=== PATIENT | male | born 1955 | race Caucasian/White ===

== ENCOUNTER 2020-02-25 18:05 | Inpatient (IN) | payer OTHER ==
[~2020-02-25] VITALS: Ht 182.9 cm; Wt 86.2 kg
[2020-02-25 18:11] VITALS: BP 124/74
[2020-02-25] MEDS ORDERED: VALSARTAN-HCTZ1 EAC4 PO (18:15)
[2020-02-25] MEDS ORDERED: LIPITOR40 MG PO (18:15)
[2020-02-25] MEDS ORDERED: ASA81BEC PO (18:15)
[2020-02-25 18:48] LABS: BASOPHILS 0.5 % (0.0-2.0); EOSINOPHILS 0.8 % (0.0-3.0); HEMOGLOBIN 13.1 gm/dL (14.0-18.0); LYMPHOCYTES 12.9 % (24.0-44.0); MCH 31.5 pg (26.0-34.0); MCHC 32.8 g/dL (28.0-37.0); MCV 96.1 fL (80.0-100.0); MONOCYTES 10.6 % (1.0-8.0); PLATELET COUNT 305 thou/uL (150-400); POLYS 75.2 % (36.0-66.0); RBC 4.16 mil/uL (4.50-6.00); RDW 13.6 % (10.5-14.5)
[2020-02-25 19:11] LABS: CALCIUM 9.5 mg/dL (8.5-10.1); CREATININE 1.4 mg/dL (0.7-1.3); POTASSIUM 3.4 mmol/L (3.5-5.1)
[2020-02-25 19:17] LABS: TOTAL PROTEIN 7.7 g/dL (6.4-8.2)
[2020-02-25 20:31] VITALS: BP 112/74
[2020-02-25 21:10] VITALS: BP 121/76
--- NOTE | 2020-02-26 02:24 | NUR ---
PT CAME TO THE UNIT FROM THE ER AT AROUND 2044. PT WITH DX OF APPENDICITIS. PT ADMISSION ASSESSMENT COMPLETED. FE[facility]RILE-SEE [facility].PT GIVEN TYLENOL WITH RELIEF OF SYMPTOM.PT FELICITA NEED FOR PAIN MEDS.ORDERS RECEIVED FROM DR CH AND INITIATED. PT IS STEADY ON FEET AND IS UP AD ÁNGELA IN ROOM.IVF INFUSING-NPO AFTER MIDNOC FOR SURGERY NEXT DAY.SCDS IN PLACE,CALL LIGHT WITHIN REACH.
[2020-02-26 03:40] VITALS: BP 108/92
[2020-02-26 06:01] LABS: HEMATOCRIT 36.1 % (42.0-52.0); HEMOGLOBIN 11.9 gm/dL (14.0-18.0); MCH 31.7 pg (26.0-34.0); MCHC 32.9 g/dL (28.0-37.0); MCV 96.4 fL (80.0-100.0); RBC 3.75 mil/uL (4.50-6.00); RDW 13.5 % (10.5-14.5)
[2020-02-26 06:11] LABS: CALCIUM 9.1 mg/dL (8.5-10.1); CREATININE 1.4 mg/dL (0.7-1.3); POTASSIUM 3.9 mmol/L (3.5-5.1)
[2020-02-26] MEDS ORDERED: HYDROCODON-ACE1 EAC7 PO (10:18)
[2020-02-26 12:24] VITALS: BP 118/82
--- NOTE | 2020-02-26 14:08 | NUR ---
assessment: CM REVIEWED CHART. PT IS S/P LAP APPENDECTOMY. PT REPORTS LIVING IN A HOUSE WITH HIS . PT REPORTS BEING FULLY INDEPENDENT WITH ADLS AND AMBULATION. PT HAS NO HX OF HH. PT REPORTS HE ANTICIPATES DISCHARGE HOME LATER TODAY AND ANTICIPATES NO NEEDS FROM CM.
[2020-02-26 15:11] VITALS: BP 126/78
--- NOTE | 2020-02-26 16:01 | NUR ---
PT ASSESSED PRIOR TO GOING DOWN FOR SURGERY. RETURNED AT 1200 ALERT AND IN NO PAIN. PT ATE SM AMT SOFT FOOD FOR LUNCH. AMBULATING SEVERAL TIMES IN THE HALLS TO HELP ALLEVIATE GAS. ABD SLIGHTLY DISTENDED. BANDAIDS DRY AND INTACT. PLAN FOR DISCHARGE AFTER AFTERNOON ZOSYN DOSE.
[2020-02-26 17:31] VITALS: BP 126/78
[2020-02-26 17:32] VITALS: BP 126/78
[2020-02-26 17:55] VITALS: BP 126/78
--- NOTE | 2020-03-02 12:07 | PATH ---
[facility] [address] [place] [address] PATHOLOGY RPT PROCEDURE Name: SAMIISSAC CARVAJAL Room #: 447-P DIS IN M.R.#: [id number] Admission: 02/25/20 Date of : 55 Discharge: 02/26/20 Report #: [id number] Path Case #: [id number] [facility] Accession Number: [id number] . 01 Material submitted: . appendix - APPENDICITIS . 01 Clinical history: . ACUTE APPENDICITIS . 01 Diagnosis: Appendix, "appendix, appendectomy": - Acute suppurative appendicitis with acute inflammation extending into the periappendiceal fat with microabscess formation. . (SHA:mmrosana; 03/01/2020) [facility] 03/01/2020 1330 Local . 01 Electronically signed: . Tex Warner MD, Pathologist NPI- [id number] . 01 Gross description: . Received in formalin labeled "Issac Angel, appendix" is an intact vermiform appendix measuring 5.4 cm in length by a diameter ranging from 0.4-1.1 cm with attached mesoappendix measuring 3.1 x 2.1 x 0.6 cm. The serosal surface is smooth, abebe-pink and proximally dilated. The surgical resection margin is inked black and the specimen is sectioned to reveal 0.3 cm lumen filled with fecal matter. There are no gross perforations identified. Health Unit Clerk of the specimen are submitted as follows: A1. Margins and cross sections A2. Appendiceal tip entirely submitted.([facility]; 02/27/2020) . GZA/GZA 02/27/2020 1338 Local . 01 Pathologist provided ICD-10: K35.80 . 01 CPT . 112744 Specimen Comment: A courtesy copy of this report has been sent to [phone] Specimen Comment: [id number] Specimen Comment: Report sent to / DR STARKS Specimen Comment: A duplicate report has been generated due to demographic updates. Performed at: [address] [place] [address] PATHOLOGY RPT PROCEDURE Name: ISSAC ANGEL Room #: 447-P DIS IN M.R.#: [id number] Admission: 02/25/20 Date of : 55 Discharge: 02/26/20 Report #: [id number] Path Case #: [id number] [place] [id number] [facility] [address], [place], [place] [id number] MD Tex Warner MD Phone: [phone]
--- NOTE | 2020-03-02 14:34 | O ---
[facility] [address] [place] [address] OPERATIVE REPORT Name: ISSAC DAVIES Room #: 447-P [facility] IN M.R.#: [id number] Admission: 02/25/20 Attend Phys: Derrick Victor MD Discharge: 02/26/20 Date of : 55 Report #: [id number] THIS REPORT FOR: cc: Jamir Martinez MD, Christopher B. MD Chu, Peter Y. MD ~ DATE OF SERVICE: 02/26/2020 PREOPERATIVE DIAGNOSES: 1. Acute appendicitis. 2. Umbilical hernia. POSTOPERATIVE DIAGNOSES: 1. Acute appendicitis. 2. Umbilical hernia. PROCEDURES PERFORMED: 1. Laparoscopic appendectomy. 2. Repair of umbilical hernia primarily. SURGEON: Derrick Victor MD ANESTHESIA: General anesthesia. COMPLICATIONS: None. ESTIMATED BLOOD LOSS: 10 mL. PROCEDURE NOTE: With the patient under general anesthesia, abdomen was prepped and draped in sterile fashion. Timeout was performed. Preoperative IV antibiotic was given about 8 o'clock. A 0.25% Marcaine was used to anesthetize the skin infraumbilically. A 3 cm incision was made infraumbilically. The skin was lifted off of the hernia defect. There was properitoneal fat through this. The fascia edges were identified superiorly also inferiorly of the hernia defect and measured about 1.5 cm. 0 Vicryl suture placed on the fascia edges for retraction. Veress needle was then placed through the peritoneum with the abdominal wall lifted with the retention sutures. After going through the hernia sac, abdominal cavity was insufflated with CO2 without difficulty. After creating pneumoperitoneum, 12 mm trocar was placed under visualization into the pneumoperitoneum, no harm to underlying tissue. A 5 mm trocar was placed about 2 inches above the umbilicus. A second 5 mm trocar was placed about an inch and a half below the umbilicus. The appendix was tucked retrocecally and laterally located. I can see the base. Right at the area of the base, there is a small exudate that was present. The right colon has some adhesion to the wall. These adhesions were taken down. This allowed the colon to be mobilized medially. [facility] [address] [place] [address] OPERATIVE REPORT Name: ISSAC DAVIES Room #: 447-P DIS IN M.R.#: [id number] Admission: 02/25/20 Attend Phys: Derrick Victor MD Discharge: 02/26/20 Date of : 55 Report #: [id number] The base of the appendix was retracted out of the retroperitoneal position and it seems to be tucked inside folds of the peritoneum. I can see the rest of the appendix and the tip was able to be delivered. The proximal two-thirds of the appendix is thickened. The tip was actually normal looking. The mesoappendix was then visualized. The mesoappendix was divided with Harmonic scalpel. The appendix was isolated. The base was identified. A 5 mm camera scope was then used through the inferior trocar. A grasper was placed to grab the appendix through the upper 5 mm trocar. The stapler was placed through the 12 mm trocar. The stapler was placed across the base and slightly into the cecum. The Endo-BRIGIDO was closed. BRIGIDO 45 with a blue staple was used. After about 10-15 seconds, the BRIGIDO was deployed. The appendix was freed without difficulty. Well-formed staple line is seen on the cecum. The appendix was placed in the specimen bag, retrieved through the 12 mm trocar/umbilical site. The appendix was retrieved without difficulty. Irrigation was performed. The tissue folded together pretty well where the appendix was located. There is no rupture, no pus. Irrigation was performed. Irrigation was aspirated out. Approximately 1 liter of irrigation was used. Trocars were removed. CO2 was evacuated as much as possible. The fascia defect for the umbilical hernia was then closed with 0 PDS [id number] x 2. The umbilicus skin was tucked down to the fascia with 5-0 PDS. Skin was then closed with 5-0 PDS in a subcuticular fashion. Steri-Strips applied. Fluffy 4 x 4 was placed in the umbilicus and Op-Site was used for dressing. The 5 mm trocar was covered by Band-Aid. The patient tolerated the procedure well and was taken to recovery room. <ELECTRONICALLY SIGNED> By: Derrick Victor MD 03/02/20 1434 1130 [id number] Derrick Victor MD /nt
== END 2020-02-26 18:30 | disposition home or self-care (01) | DRG 343 ==
LOC: ER 18:05 → 4S 20:08 → EROBS 20:08 → 4S 20:47
PROVIDERS: Nurse Practitioner; ADMIT Surgery; ATTEND Surgery
DX: K35.80 Unspecified acute appendicitis (principal); K42.9 Umbilical hernia without obstruction or gangrene; E78.5 Hyperlipidemia, unspecified; Z20.822 Contact with and (suspected) exposure to COVID-19; Z79.82 Long term (current) use of aspirin; Z79.899 Other long term (current) drug therapy; N18.30 Chronic kidney disease, stage 3 unspecified
CPT/HCPCS: 10195; 50010; 50101; 50243; 50246; 50411; 50555; 50558; 51489; 52265; 53307; 53310; 53335; 56525; 56526; 62110; 62900; 70005